=== PATIENT | female | born 1975 | race Caucasian/White ===

== ENCOUNTER → 2017-06-26 | Outpatient (CLI) | payer OTHER | LOC: FIMAGING 11:41 | PROVIDERS: ATTEND Obstetrics & Gynecology | DX: N83.202 Unspecified ovarian cyst, left side (principal) ==

== ENCOUNTER → 2017-07-15 | Outpatient (CLI) | payer OTHER | LOC: CIMAGING 14:26 | PROVIDERS: ATTEND Obstetrics & Gynecology | DX: N83.202 Unspecified ovarian cyst, left side (principal) | CPT/HCPCS: 76856-PO ==

== ENCOUNTER 2018-05-03 04:25 | Emergency (ER) | payer OTHER | END 2018-05-03 06:52 | disposition home or self-care (01) ==